=== PATIENT | female | born 1980 ===

== ENCOUNTER 2018-12-10 12:08 | Emergency (ER) | payer MEDICAID ==
[2018-12-10 12:09] VITALS: BMI 27.4
[2018-12-10 12:53] VITALS: BP 135/76; PULSE 74; RESP 16; TEMP 98; O2SAT 100
--- NOTE | 2018-12-10 13:10 | ED PDOC ---
HPI: Skin/Bite Injury Time Seen by Provider: 12/10/18 12:55 Chief Complaint (Nursing): Upper Extremity Problem/Injury Chief Complaint (Provider): Right Forearm Bump History Per: Patient, Partner Manager (Pakistani, #[id number]) History/Exam Limitations: no limitations Onset/Duration Of Symptoms: Intermittent Episodes (x1 year of pain to bump), Persistent (x1 year of having the bump) Current Symptoms Are (Timing): Constant (bump being present) Additional Complaint(s): 38 year old female presents to the ED for evaluation of a constant bump to her right forearm for the past year which has been intermittently painful, last time being last night, but nothing today. She states that she has seen her PMD for this issue, but he said it was normal, however she is sick of it and would like to know what it is. Denies medication use for symptoms, injury, changes in skin color, and changes in motor sensation. LNMP: 11/24 PMD: Ilene Cleaning Past Medical History Reviewed: Historical Data, Nursing Documentation, Vital Signs Vital Signs: Last Vital Signs Temp 98 F 12/10/18 12:51 Pulse 74 12/10/18 12:51 Resp 16 12/10/18 12:51 BP 135/76 12/10/18 12:51 Pulse Ox 100 12/10/18 12:51 - Medical History PMH: No Chronic Diseases - Surgical History Surgical History: (x1) Other surgeries: kidney donor - Family History Family History: States: Unknown Family Hx - Social History Current smoker - smoking cessation education provided: No Alcohol: None Drugs: Denies - Home Medications Home Medications: Ambulatory Orders Medication Instructions Recorded Ibuprofen [Motrin] 600 mg PO Q6 PRN #30 tab 09/07/14 - Allergies Allergies/Adverse Reactions: Allergies Allergy/AdvReac Type Severity Reaction Status Date / Time No Known Allergies Allergy Verified 09/02/14 15:35 Review of Systems ROS Statement: Except As Marked, All Systems Reviewed And Found Negative Skin: Positive for: Other (bump on right forearm, intermittently painful. no changes in skin color) Neurological: Negative for: Other (changes in motor sensation) Physical Exam - Reviewed Nursing Documentation Reviewed: Yes Vital Signs Reviewed: Yes - Physical Exam Comments: GENERAL APPEARANCE: Patient is awake, alert, oriented x 3, in no obvious distress Skin: warm, dry, no signs of cellulitis Pulmonary: lungs clear, no rhonchi, no wheezing. Cardiac: regular rate and rhythm, no murmur, no gallop. Abdomen: soft, nontender. Right Upper Extremity: capillary refill less than two seconds. radial pulses 2+. (+) 5mm palpable non-mobile lesion to anterior proximal forearm, full range of motion, (-) fluctuance, (-) erythema, (-) swelling, (-) tenderness. Neurovascular intact. Neuro: mental status as above. (-) motor or sensory deficits. - ECG O2 Sat by Pulse Oximetry: 100 (RA) Pulse Ox Interpretation: Normal Medical Decision Making Medical Decision Making: Time: 1301 Initial Impression: likely lipoma Initial Plan: --Right forearm XR --Patient advised to follow up with shaker out for further evaluation 1314 XR FINDINGS: BONES: Bone alignment and mineralization are normal. There is no acute displaced fracture or bone destruction. JOINT SPACES: Unremarkable. OTHER FINDINGS: None. IMPRESSION: No acute fracture or dislocation. Likely lipoma, non tender, no signs of infection Discussed results, diagnosis, treatment, return precautions and f/u with pt who is understanding, in agreement and stable for dc ------ Scribe Attestation: Documented by Nai Randolph acting as a scribe for Rajesh Myers PA-C. Provider Scribe Attestation: All medical record entries made by the Scribe were at my direction and personally dictated by me. I have reviewed the chart and agree that the record accurately reflects my personal performance of the history, physical exam, medical decision making, and the department course for this patient. I have also personally directed, reviewed, and agree with the discharge instructions and disposition. Disposition - Clinical Impression Clinical Impression: Lipoma of arm - Patient ED Disposition Is Patient to be Admitted: No Counseled Patient/Family Regarding: Studies Performed, Diagnosis, Need For Followup - Disposition Referrals: Ilene Cleannig MD [Family Provider] - Disposition: Routine/Home Disposition Time: 13:35 Condition: STABLE Additional Instructions: Radha por dejarnos cuidar de ti hoy. Recibi tratamiento por un golpe en el brazo que puede ser un lipoma. La atencin mdica de emergencia que recibi hoy se dirigi a angel sntomas agudos. Si le recetaron algn medicamento, llnelo y tmelo segn las indicaciones. Los sntomas pueden tardar varios thibodeaux en resolverse. Regrese al Departamento de Emergencias si angel sntomas empeoran, no mejoran o si tiene otros problemas. Comunquese con henriquez mdico dentro de 2 thibodeaux para lissy nueva evaluacin y vijay un seguimiento o llame a luis eduardo de los mdicos / clnicas a los que merida sido referido y que figuran en el formulario de Informacin de visita al paciente que se incluye en henriquez paquete de danya. Lleve todos los documentos que le entregaron al momento del danya junto con todos los medicamentos que est tomando para henriquez visita de seguimiento. Nuestro tratamiento no puede reemplazar la atencin mdica continua por parte de un proveedor de atencin primaria (PCP) fuera del departamento de emergencias. Regrese a la ED para sntomas nuevos o que empeoran, fiebre> 100.4, cambios en el color de la piel, incapacidad para tube builder el brazo, hinchazn. Vijay un seguimiento con henriquez mdico de cabecera en 2-3 thibodeaux, es posible que deba hacer un seguimiento con un mdico de la piel / dermatlogo.Return to ED for new or worsening symptoms, fever >100.4, changes in skin color, unable to move arm, swelling. Follow up with your primary doctor in 2-3 days, you may need to follow up with a skin doctor/shaker out. Instructions: Lipoma Print Language: ALBANIAN
--- NOTE | 2018-12-10 13:19 | RAD ---
PROCEDURE: Radiographs of the Right Forearm HISTORY: bump COMPARISON: None available. TECHNIQUE: Frontal and lateral views obtained. 2 views obtained. FINDINGS: BONES: Bone alignment and mineralization are normal. There is no acute displaced fracture or bone destruction. JOINT SPACES: Unremarkable. OTHER FINDINGS: None. IMPRESSION: No acute fracture or dislocation.
== END 2018-12-10 14:23 | disposition home or self-care (01) ==
LOC: H.ER 12:08
DX: D17.21 Benign lipomatous neoplasm of skin and subcutaneous tissue of right arm (principal)